=== PATIENT | female | born 1950 | race Caucasian/White ===

== ENCOUNTER 2016-07-19 07:26 | Day surgery (SDC) | payer MEDICARE ==
[~2016-07-19] VITALS: Ht 152.4 cm; Wt 44.0 kg
[~2016-07-19 07:26] MED LIST: AZO-95TA2 PO; BACT800T5 PO; FISHCAP4 PO; LOPE7.5C PO; NIAC250T3 PO
[2016-07-19 07:41] VITALS: BP 131/60; PULSE 85; RESP 20; TEMP 97.7; O2SAT 95
[2016-07-19] MEDS ORDERED: SODIUM CHLOR 0.9% 1000 ML INJ 1,000 ML IV SCH (08:00)
[2016-07-19] MEDS ORDERED: LIDOCAINE 1%/EPINEPHrine 1:100,000 SOLN 20 ML VIAL ONE (08:33)
[2016-07-19] MEDS ORDERED: fentaNYL CITRATE 250 MCG/5 ML AMP ONE (08:48)
[2016-07-19] MEDS ORDERED: MIDAZOLAM HCL 5 MG/5 ML VIAL ONE (08:48)
[2016-07-19] MEDS ORDERED: SODIUM CHLORIDE 0.9% FLUSH 5 ML FLUSH IVF PRN (09:15)
--- NOTE | 2016-07-19 09:16 | PD.RAD ---
Post Procedure Progress Note Pre Procedure Diagnosis: (1) Cervical cancer Post Procedure Diagnosis: (1) Cervical cancer Procedure Date: Jul 19, 2016 Supervising Radiologist: Braden Wagner Proceduralist/Assist: Syl Nelson RT(R)(CV), RT Stone(R)() Anesthesia: Conscious Sedation Plan of Activity Patient to Unit: ROPU Patient Condition: Good See PACS Report for procedural detail/treatment Central Venous Access Device Procedure 1 Infusaport Removal Braden Wagner MD Jul 19, 2016 09:16
[2016-07-19 09:35] VITALS: BP 125/50; PULSE 83; RESP 16; O2SAT 97
[2016-07-19 09:50] VITALS: BP 101/48; PULSE 84; RESP 16; O2SAT 97
[2016-07-19 10:20] VITALS: BP 112/50; PULSE 85; RESP 16; O2SAT 97
--- NOTE | 2016-07-19 11:39 | RADRPT ---
EXAM DATE/TIME: 07/19/2016 07:44 [facility] COMPARISON: No previous studies available for comparison.88 INDICATIONS : Patient has history of cervical cancer, no longer needed. MEDICAL HISTORY : Osteoporosis,cervical cancer SURGICAL HISTORY : Tubual ligation ENCOUNTER: Subsequent ACUITY: 4-6 months PAIN SCORE: 0/10 SEDATION TIME: 30 minutes 1.) 1.5 mg midazolam (Versed) IV 2.) 75 mcg fentanyl (Sublimaze) IV PROCEDURE : 1. Removal of Lxnvbc-n-odas. 2. Conscious sedation with continuous EKG and oximetry monitoring. The risk, benefits and potential complications of [id number]-[id number] removal were discussed. Written conse nt was obtained. The patient was placed supine. The chest wall was prepped in sterile fashion. Full sterile techniqu e was used, including cap, mask, sterile gloves and gown, and a large sterile sheet. Hand hygiene an d 2% chlorhexidine and/or Betadine/alcohol prep was utilized per protocol for cutaneous antisepsis. The skin and subcutaneous tissues were infiltrated with local anesthetic solution. A small incision w as made, the subcutaneous pocket was opened. The port was dissected from the subcutaneous tissues and easily removed in one piece. The pocket incision was closed with subcuticular Vicryl suture. Steri -Strips were applied. Conscious sedation was performed with the prescribed dosages and duration as above. The patient tole rated the procedure well and there were no complications. EKG and oximetry remained stable throughou t the procedure. The patient was sent to post anesthesia recovery in stable condition. CONCLUSION: Uncomplicated port removal as above. Braden Wagner MD on July 19, 2016 at 11:37 Board Certified Radiologist. This report was verified electronically.
== END 2016-07-19 12:05 | disposition home or self-care (01) ==
LOC: HROP 07:26 → HRIP 07:27 → HROP 12:05
PROVIDERS: ATTEND Nurse Practitioner Family
DX: Z45.2 Encounter for adjustment and management of vascular access device (principal); C53.9 Malignant neoplasm of cervix uteri, unspecified; M81.0 Age-related osteoporosis without current pathological fracture
CPT/HCPCS: 36590; 99152; 99153; J2250; J3010; J7030

== ENCOUNTER 2017-01-21 12:39 | Emergency (ER) | payer MEDICARE ==
[~2017-01-21] VITALS: Ht 152.4 cm; Wt 39.0 kg
[~2017-01-21 12:39] MED LIST changes: -AZO-95TA2 PO; -BACT800T5 PO
[2017-01-21 12:42] VITALS: BP 144/68; PULSE 92; RESP 16; TEMP 98.2; O2SAT 98
--- NOTE | 2017-01-21 13:04 | PD ---
HPI Chief Complaint: Abdominal Pain Time Seen by Provider: 12:54 Travel History International Travel<30 days: No Contact w/Intl Traveler<30days: No Traveled to known affect area: No History of Present Illness HPI 66 year old female with a history of cervical cancer treated with chemotherapy and radiation complaining of abdominal pain x 1 week. She is also having frequent bowel movements with mucus and blood in the stool, nausea, and weight loss. She denies any fever, chills, cough, diarrhea, constipation, dysuria, or vomiting. She also denies any history of diverticulitis, diverticulosis, abdominal or pelvic surgeries, or inflammatory bowel. She does smoke cigarettes and drinks alcohol almost daily. She states she's had some mild weight loss over the past few months. Denies any fever. PFSH Past Medical History Cancer: Yes (cervical) Cardiovascular Problems: No Chemotherapy: Yes (cervical) Diabetes: No Endocrine: No Genitourinary: No Hepatitis: No Hiatal Hernia: No Immune Disorder: No Musculoskeletal: No Neurologic: No Psychiatric: No Reproductive: No Respiratory: No Immunizations Current: Yes Thyroid Disease: No ?: Not Past Surgical History Abdominal Surgery: No AICD: No Body Medical Devices: NONE PER PT Cardiac Surgery: No Ear Surgery: No Endocrine Surgery: No Eye Surgery: No Genitourinary Surgery: No Gynecologic Surgery: No Joint Replacement: No Oral Surgery: Yes (teeth removal) Pacemaker: No Thoracic Surgery: No Social History Alcohol Use: Yes Tobacco Use: Yes Substance Use: No Allergies-Medications (Allergen,Severity, Reaction): Coded Allergies: Penicillin (Unverified Allergy, Unknown, Rash, 05/23/16) Reported Meds & Prescriptions Reported Meds & Active Scripts Active Flagyl (Metronidazole) 500 Mg Tab 500 Mg PO BID 7 Days Cipro (Ciprofloxacin HCl) 500 Mg Tab 500 Mg PO BID 7 Days Phenergan (Promethazine HCl) 25 Mg Tablet 12.5 Mg PO Q6H PRN Reported Imodium A-D (Loperamide HCl) 2 Mg Cap 2 Mg PO Q6H PRN Fish Oil + D3 (Fish Oil-Cholecalciferol) 1,200-1,000 Mg-Unit Cap 1 Cap PO BID Niacin 250 Mg Tab 500 Mg PO BID Review of Systems Except as stated in HPI: all other systems reviewed are Neg General / Constitutional: Positive: Weight Loss, No: Fever, Chills, Weight Gain Cardiovascular: No: Chest Pain or Discomfort, Palpitations Respiratory: No: Cough, Shortness of Breath Gastrointestinal: Positive: Nausea, Abdominal Pain, Hematochezia, Changes in Bowel Habits, No: Vomiting, Diarrhea Genitourinary: No: Urgency, Frequency, Dysuria Physical Exam Narrative GENERAL: Patient appears thin and uncomfortable but in no acute distress., Appears quite pleasant. SKIN: Warm and dry. HEAD: Atraumatic. Normocephalic. EYES: Pupils equal and round. No scleral icterus. No injection or drainage. ENT: No nasal bleeding or discharge. Mucous membranes pink and moist. NECK: Trachea midline. No JVD. CARDIOVASCULAR: Regular rate and rhythm. RESPIRATORY: No accessory muscle use. Clear to auscultation. Breath sounds equal bilaterally. GASTROINTESTINAL: Abdomen soft, non-tender, nondistended. Hepatic and splenic margins not palpable. No rebound no percussive tenderness, so some bobcat operator sign is negative, MUSCULOSKELETAL: Extremities without clubbing, cyanosis, or edema. No obvious deformities. NEUROLOGICAL: Awake and alert. No obvious cranial nerve deficits. Motor grossly within normal limits. Five out of 5 muscle strength in the arms and legs. Normal speech. PSYCHIATRIC: Appropriate mood and affect; insight and judgment normal. Data Data Last Documented VS Vital Signs Date Time Temp Pulse Resp B/P Pulse Ox O2 Delivery O2 Flow Rate FiO2 01/21/17 13:36 74 16 145/74 99 01/21/17 12:42 98.2 Orders Complete Blood Count With Diff (01/21/17 13:07) Comprehensive Metabolic Panel (01/21/17 13:07) Lipase (01/21/17 13:07) Prothrombin Time / Inr (Pt) (01/21/17 13:07) Act Partial Throm Time (Ptt) (01/21/17 13:07) Urinalysis - C+S If Indicated (01/21/17 13:07) Ct Abd/Pel W Iv Contrast(Rout) (01/21/17 13:07) Iv Access Insert/Monitor (01/21/17 13:07) Ecg Monitoring (01/21/17 13:07) Oximetry (01/21/17 13:07) Ondansetron Inj (Zofran Inj) (01/21/17 13:15) Sodium Chloride 0.9% Flush (Ns Flush) (01/21/17 13:15) Sodium Chlorid 0.9% 500 Ml Inj (Ns 500 M (01/21/17 13:15) Iohexol 350 Inj (Omnipaque 350 Inj) (01/21/17 15:01) Labs Laboratory Tests Test 01/21/17 13:30 White Blood Count 7.3 TH/MM3 Red Blood Count 3.81 MIL/MM3 Hemoglobin 13.2 GM/DL Hematocrit 38.4 % Mean Corpuscular Volume 100.6 FL Mean Corpuscular Hemoglobin 34.5 PG Mean Corpuscular Hemoglobin 34.3 % Concent Red Cell Distribution Width 13.6 % Platelet Count 407 TH/MM3 Mean Platelet Volume 5.9 FL Neutrophils (%) (Auto) 76.6 % Lymphocytes (%) (Auto) 15.6 % Monocytes (%) (Auto) 5.7 % Eosinophils (%) (Auto) 1.5 % Basophils (%) (Auto) 0.6 % Neutrophils # (Auto) 5.6 TH/MM3 Lymphocytes # (Auto) 1.1 TH/MM3 Monocytes # (Auto) 0.4 TH/MM3 Eosinophils # (Auto) 0.1 TH/MM3 Basophils # (Auto) 0.0 TH/MM3 CBC Comment DIFF FINAL Differential Comment Prothrombin Time 10.7 SEC Prothromb Time International 1.0 RATIO Ratio Activated Partial 28.7 SEC Thromboplast Time Urine Color YELLOW Urine Turbidity CLEAR Urine pH 6.5 Urine Specific [place] 1.012 Urine Protein NEG mg/dL Urine Glucose (UA) NEG mg/dL Urine Ketones NEG mg/dL Urine Occult Blood SMALL Urine Nitrite NEG Urine Bilirubin NEG Urine Urobilinogen LESS THAN 2.0 MG/DL Urine Leukocyte Esterase NEG Urine RBC 1 /hpf Urine WBC LESS THAN 1 /hpf Urine Squamous Epithelial <1 /hpf Cells Urine Mucus FEW /lpf Microscopic Urinalysis Comment CULT NOT INDICATED Sodium Level 138 MEQ/L Potassium Level 4.0 MEQ/L Chloride Level 105 MEQ/L Carbon Dioxide Level 25.2 MEQ/L Anion Gap 8 MEQ/L Blood Urea Nitrogen 6 MG/DL Creatinine 0.77 MG/DL Estimat Glomerular Filtration 75 ML/MIN Rate Random Glucose 89 MG/DL Calcium Level 8.7 MG/DL Total Bilirubin 0.3 MG/DL Aspartate Amino Transf 12 U/L (AST/SGOT) Alanine Aminotransferase 11 U/L (ALT/SGPT) Alkaline Phosphatase 85 U/L Total Protein 6.8 GM/DL Albumin 3.6 GM/DL Lipase 77 U/L [facility] Medical Decision Making Medical Screen Exam Complete: Yes Emergency Medical Condition: Yes Differential Diagnosis Diverticulitis malignancy small bowel obstruction colitis Narrative Course Patient roomed emergency department, appears quite well. 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 CAT scan is not performed on this patient in some time, she did have a PET scan in August which was negative. CAT scan of the abdomen was performed which shows following results: Last 24 hours Impressions Abdomen/Pelvis CT 01/21/17 1307 Signed Impressions: Service Date/Time: Monday, January 21, 2017 14:56 - CONCLUSION: 1. Wall thickening involving small bowel loops without obstruction. 2. Minimal ascites adjacent to the liver. 1. Mario Jones MD Discuss results with the patient and given her last radiation was in May I think is unlikely that she is still having radiation colitis. Recommended that she have Cipro and Flagyl given the flexor blood that she seen in her stool. Discussed need follow-up with her chemotherapy physician. She's appearing quite well currently and is stable for discharge. Discussed return to ED criteria symptomatic management home push by mouth fluids and bland diet. Diagnosis Primary Impression: Ileitis Med/Other Pt SpecificInfo: Prescription(s) given Scripts Metronidazole (Flagyl)500 Mg [id number] Mg PO BID 7 Days Ref 0 Prov:Qasim Singleton MD 01/21/17 Ciprofloxacin (Cipro)500 Mg [id number] Mg PO BID 7 Days Ref 0 Prov:Qasim Singleton MD 01/21/17 Promethazine (Phenergan)25 Mg Atyktc42.5 Mg PO Q6H PRN (NAUSEA OR VOMITING) #15 TAB Ref 0 Prov:Qasim Singleton MD 01/21/17 Disposition: 01 DISCHARGE HOME Condition: Stable Qasim Singleton MD Jan 21, 2017 13:04
[2017-01-21] MEDS ORDERED: SODIUM CHLORID 0.9% 500 ML INJ 500 ML IV ONE (13:15)
[2017-01-21] MEDS ORDERED: SODIUM CHLORIDE 0.9% FLUSH 10 ML FLUSH IV FLUSH PRN (13:15)
[2017-01-21] MEDS ORDERED: ONDANSETRON HCL 4 MG/2 ML VIAL IVP ONE (13:15)
[2017-01-21 13:36] VITALS: BP 145/74; PULSE 74; RESP 16; O2SAT 99
[2017-01-21 13:54] LABS: AUTOMATED NEUTROPHIL # 5.6 TH/MM3 (1.8-7.7); BASOPHIL % 0.6 % (0.0-2.0); EOSINOPHIL # 0.1 TH/MM3 (0-0.4); EOSINOPHIL % 1.5 % (0.0-4.0); HEMATOCRIT 38.4 % (35.0-46.0); HEMO FLAGS DIFF FINAL; LYMPH % 15.6 % (9.0-44.0); LYMPHOCYTE # 1.1 TH/MM3 (1.0-4.8); MEAN CELL VOLUME 100.6 FL (80.0-100.0); MEAN CORPUSCULAR HEMOGLOBIN 34.5 PG (27.0-34.0); MEAN CORPUSCULAR HGB CONC 34.3 % (32.0-36.0); MONO % 5.7 % (0.0-8.0); NEUT % 76.6 % (16.0-70.0); PLATELET COUNT 407 TH/MM3 (150-450); RED BLOOD COUNT 3.81 MIL/MM3 (4.00-5.30); RED CELL DISTRIBUTION WIDTH 13.6 % (11.6-17.2); WHITE BLOOD COUNT 7.3 TH/MM3 (4.0-11.0)
[2017-01-21 14:06] LABS: APTT (PATIENT) 28.7 SEC (24.3-30.1); PROTHROMBIN TIME - PATIENT 10.7 SEC (9.8-11.6)
[2017-01-21 14:09] LABS: BLOOD, URINE SMALL (NEG); GLUCOSE,URINE NEG (NEG); KETONE, URINE NEG (NEG); MUCUS URINE FEW /lpf (OCC); NITRITE,URINE NEG (NEG); PH, URINE 6.5 (5.0-8.5); SQUAMOUS EPITHELIAL CELL URINE <1 /hpf (0-5); URINE COLOR YELLOW (YELLW/STRAW)
[2017-01-21 14:11] LABS: COMMENT (UR) CULT NOT INDICATED; CULTURE IF INDICATED CULT NOT INDICATED
[2017-01-21 14:22] LABS: ALT (GPT) 11 U/L (10-53); ANION GAP 8 MEQ/L (5-15); AST (GOT) 12 U/L (15-37); BICARBONATE 25.2 MEQ/L (21.0-32.0); BLOOD UREA NITROGEN 6 MG/DL (7-18); CHLORIDE 105 MEQ/L (98-107); GLOMERULAR FILTRATION RATE 75 ML/MIN (>89); SODIUM (NA) 138 MEQ/L (136-145)
[2017-01-21 14:24] LABS: ALKALINE PHOSPHATASE 85 U/L (45-117); TOTAL BILIRUBIN ADULT 0.3 MG/DL (0.2-1.0)
[2017-01-21] MEDS ORDERED: IOHEXOL 350 MG/ML 10 ML VIAL (for RAD DIAG) IV ONE (15:01)
--- NOTE | 2017-01-21 15:20 | RADRPT ---
EXAM DATE/TIME: 01/21/2017 14:56 [facility] COMPARISON: No previous studies available for comparison. INDICATIONS : Increasing lower abdominal pain with nasuea. IV CONTRAST: 90 cc Omnipaque 350 (iohexol) IV ORAL CONTRAST: No oral contrast ingested. RADIATION DOSE: 4.48 CTDIvol (mGy) MEDICAL HISTORY : Cervical cancer. SURGICAL HISTORY : None. ENCOUNTER: Initial ACUITY: 1 day PAIN SCALE: 6/10 LOCATION: Bilateral lower quadrant TECHNIQUE: Volumetric scanning of the abdomen and pelvis was performed. Using automated exposure control and ad justment of the mA and/or kV according to patient size, radiation dose was kept as low as reasonably achievable to obtain optimal diagnostic quality images. DICOM format image data is available electro nically for review and comparison. FINDINGS: LOWER LUNGS: The visualized lower lungs are clear. LIVER: Homogeneous density without lesion. There is no dilation of the biliary tree. No calcified gallston es. Minimal ascites. SPLEEN: Normal size without lesion. PANCREAS: Within normal limits. KIDNEYS: Normal in size and shape. There is no mass, stone or hydronephrosis. ADRENAL GLANDS: Within normal limits. VASCULAR: There is no aortic aneurysm. BOWEL/MESENTERY: Mild wall thickening involving some small bowel loops lower abdomen. No obstruction.. There is no fr ee intraperitoneal air or fluid. ABDOMINAL WALL: Within normal limits. RETROPERITONEUM: There is no lymphadenopathy. BLADDER: No wall thickening or mass. REPRODUCTIVE: Within normal limits. INGUINAL: There is no lymphadenopathy or hernia. MUSCULOSKELETAL: Within normal limits for patient age. CONCLUSION: 1. Wall thickening involving small bowel loops without obstruction. 2. Minimal ascites adjacent to the liver. 1. Mario Jones MD on January 21, 2017 at 15:11 Board Certified Radiologist. This report was verified electronically.
[2017-01-21] MEDS ORDERED: CIPR-9 PO (15:38)
[2017-01-21] MEDS ORDERED: METR-1 PO (15:38)
[2017-01-21] MEDS ORDERED: PROM25TA10 PO (15:38)
== END 2017-01-21 15:56 | disposition home or self-care (01) ==
LOC: NEPC 12:39
DX: C53.9 Malignant neoplasm of cervix uteri, unspecified (principal); K52.9 Noninfective gastroenteritis and colitis, unspecified; F17.210 Nicotine dependence, cigarettes, uncomplicated
CPT/HCPCS: 74177; 80053; 81001; 83690; 85025; 85610; 85730; 96361; 96374; 99285; J2405; J7040; Q9967